=== PATIENT | female | born 1970 | race Caucasian/White ===

== ENCOUNTER 2019-12-25 14:28 | Outpatient (CLI) | payer BC, SELFPAY ==
--- NOTE | ~2019-12-25 | XR_ITS ---
EXAMINATION: XR shoulder LT min 2V DATE: 12/25/2019 14:51 INDICATION: Left shoulder impingement syndrome. TECHNIQUE: 4 views of left shoulder were obtained. COMPARISON: None. FINDINGS: Bone alignment is normal. No fracture. Joint spaces are well maintained. IMPRESSION: 1. Normal left shoulder. Reviewed, dictated and finalized at location A. IMPRESSION: 1. Normal left shoulder.
== END 2019-12-25 14:29 | disposition home or self-care (01) ==
DX: M75.42 Impingement syndrome of left shoulder (principal)
CPT/HCPCS: 73030

== ENCOUNTER 2020-03-15 16:14 | Emergency (ER) | payer BC, SELFPAY ==
[2020-03-15 16:37] VITALS: BP 124/71; PULSE 84; RESP 16; TEMP 36.6; O2SAT 100
[2020-03-15] MEDS: TETANUS,DIPHTHERIA,AC PERTUSSIS ADULT (0.5 ML) BOOSTRIX IM (19:00)
--- NOTE | 2020-03-15 19:51 | ED.GENADULT ---
HPI - General Adult General Chief complaint: Extremity Injury, Upper <Estela Madrid PA-C - Last Filed: 03/15/20 19:56> Stated complaint: cut pinky finger with kitchen knife <PILAR Ackerman Last Filed: 03/15/20 19:56> Time Seen by Provider: 03/15/20 17:19 <Estela Madrid PA-C - Last Filed: 03/15/20 19:56> Source: patient <PILAR Ackerman Last Filed: 03/15/20 19:56> Mode of arrival: ambulatory <PILAR Ackerman Last Filed: 03/15/20 19:56> Limitations: no limitations <PILAR Ackerman Last Filed: 03/15/20 19:56> History of Present Illness HPI narrative: Patient presents with chief complaint of laceration to the volar aspect of her right pinky that she sustained while using a knife cooking dinner. Patient states that the area was bleeding profusely so she applied pressure and was able to get the bleeding to stop. Patient states that she does not believe she is up-to-date on tetanus. Patient denies any loss of range of motion to digit or bony tenderness. Patient denies any other injuries. <Estela Madrid PA-C - Last Filed: 03/15/20 19:56> Related Data Home medications: Home Medications Medication Instructions Recorded Confirmed No Home Medications 06/02/19 06/02/19 <PILAR Ackerman Last Filed: 03/15/20 19:56> Allergies/adverse reactions: Allergies Allergy/AdvReac Type Severity Reaction Status Date / Time No Known Allergies Allergy Unknown Verified 06/02/19 10:00 <PILAR Ackerman Last Filed: 03/15/20 19:56> Review of Systems Review of Systems: Narrative: CONSTITUTIONAL: Denies fever, chills, or sweats. EYES: Denies visual changes, redness, or discharge. ENT: Denies rhinorrhea, congestion, sore throat, or otalgia. CARDIOVASCULAR: Denies chest pain, palpitations, or edema. RESPIRATORY: Denies cough or dyspnea. GASTROINTESTINAL: Denies abdominal pain, nausea, vomiting, or diarrhea. GENITOURINARY: Denies dysuria or hematuria. SKIN: Reports laceration denies rash or itching. MUSCULOSKELETAL: Denies back pain, joint pain, or myalgia. NEUROLOGIC: Denies headache, numbness, dizziness, or weakness. PSYCHIATRIC: Denies anxiety or depression. <Estela Madrid PA-C - Last Filed: 03/15/20 19:56> PMFSH Past Medical History Medical History: Medical History (Updated 03/15/20 @ 19:55 by Estela Madrid PA-C) Vaginal delivery <Estela Madrid PA-C - Last Filed: 03/15/20 19:56> Family History Family History: Family History Grandparent Hypertension Carcinoma of colon Family history of malignant neoplasm of breast Family history of coronary artery disease Diabetes mellitus <Estela Madrid PA-C - Last Filed: 03/15/20 19:56> Social History Social History: Social History Smoking status: Never smoker Second hand tobacco smoke exposure: No Alcohol intake: never Gender identity (if verbalized by the patient): Female <Estela Madrid PA-C - Last Filed: 03/15/20 19:56> Exam Narrative: Exam Narrative: GENERAL: Well-appearing, well-nourished, and in no acute distress. HEAD: Normocephalic, atraumatic. EYES: PERRLA and EOMI. NECK: Supple. No adenopathy or masses. No carotid bruits or JVD CHEST: Clear to auscultation. No respiratory distress. No wheezes rales or rhonchi HEART: Regular rate and rhythm. EXTREMITIES: Approximate 1 cm laceration to the volar aspect of patient's right pinky. No bleeding at this time. No bony tenderness or loss of range of motion. Normal range of motion. No edema. SKIN: Warm, dry, no rash. NEURO: No focal deficits. Alert and oriented x3. PSYCH: Normal mood and affect. <Estela Madrid PA-C - Last Filed: 03/15/20 19:56> Course Vital Signs Vital signs: Vital Signs Temperature 36.6 C 03/15/20 16:37 Pulse Rate 84 03/15/20 16:37 Respiratory
== END 2020-03-15 20:16 | disposition home or self-care (01) ==
PROVIDERS: Emergency Provider Emergency Medicine
DX: S61.216A Laceration without foreign body of right little finger without damage to nail, initial encounter (principal); Z23 Encounter for immunization; W26.0XXA Contact with knife, initial encounter; Y93.G1 Activity, food preparation and clean up
CPT/HCPCS: 12001; 90471; 90715; 99282

== ENCOUNTER → 2021-07-04 12:44 | Outpatient (CLI) | payer BC, SELFPAY ==
--- NOTE | ~2021-07-04 | US_ITS ---
EXAMINATION: US pelvic complete w TV EXAM DATE: 07/04/2021 13:16 INDICATION: N85.2 - Hypertrophy of uterus. TECHNIQUE: Pelvic transabdominal and transvaginal sonogram was performed. There are multiple graysca le and Doppler images available for interpretation. There is no prior study for comparison. FINDINGS: Uterus measures 10.7 x 5.1 x 5.9 cm, and is morphologically normal. Endometrial stripe me asures 16 mm, within upper normal limits for premenopausal age. There is no free pelvic fluid. Right adnexa: The ovary measures 1.9 x 1.7 x 1.7 cm and is morphologically normal. Ovarian vascular f low confirmed. Left adnexa: The ovary measures 2.8 x 2.3 x 2.8 cm and is morphologically normal. Ovarian vascular fl ow confirmed. IMPRESSION: 1. Unremarkable pelvic ultrasound exam. Reviewed, dictated and finalized at location B.
--- NOTE | ~2021-07-04 | MM_ITS ---
EXAMINATION: MM screening [facility] BI w willie HISTORY: Screening mammogram TECHNIQUE: Craniocaudal and mediolateral oblique 3-D tomosynthesis images were obtained and synthetic 2-D images were generated. CAD analysis was submitted and interpreted. COMPARISON: 08/29/2018, 08/16/2016 BREAST PARENCHYMAL COMPOSITION: The breasts are heterogeneously dense, which may obscure small masses . FINDINGS: RIGHT BREAST: There is no suspicious mass, calcification, or architectural distortion to suggest raghu gnancy. There has been no significant interval change. LEFT BREAST: There is a possible mass in the middle third of the lower-outer breast best appreciated 4.5 cm from the nipple on craniocaudal tomosynthesis image 16/56. IMPRESSION: 1. Possible left breast mass. 2. Additional mammographic views and possible breast ultrasound are recommended. BI-RADS Category 0: Incomplete: Needs additional imaging evaluation. Reviewed, dictated and finalized at location A. IMPRESSION: 1. Possible left breast mass. 2. Additional mammographic views and possible breast ultrasound are recommended . BI-RADS Category 0: Incomplete: Needs additional imaging evaluation.
== END ==
PROVIDERS: Visit Provider Obstetrics & Gynecology
DX: Z12.31 Encounter for screening mammogram for malignant neoplasm of breast (principal); R92.8 Other abnormal and inconclusive findings on diagnostic imaging of breast; N85.2 Hypertrophy of uterus
CPT/HCPCS: 76830; 76856; 77063; 77067

== ENCOUNTER → 2021-07-25 14:16 | Outpatient (CLI) | payer BC, SELFPAY ==
--- NOTE | ~2021-07-25 | MMUS_ITS ---
EXAMINATION: MM diagnostic gurdeep LT w willie, US breast LT limited HISTORY: Possible mass reported in the middle third of the lower outer left breast 4.5 cm from the ni pple on 07/04/2021 screening mammogram examination TECHNIQUE: Additional 3-D tomosynthesis images of the left breast were performed and synthetic 2-D im ages were generated. CAD analysis was submitted and interpreted. High resolution upper outer and lowe r-outer left breast ultrasound was performed. COMPARISON: 07/04/2021 bilateral screening mammogram FINDINGS: MAMMOGRAPHIC FINDINGS: An approximately 5 mm partially circumscribed opacity is noted in the posterior outer mid left breast . No suspicious mass or architectural distortion, malignant calcification, skin thickening or retractio n is evident otherwise. ULTRASOUND: No suspicious solid lesion or shadowing is evident. 12:00 subareolar: 6 mm simple cyst 2:00 subareolar: Parallel circumscribed 4 x 7.3 mm complex lesion without internal vascularity or pos terior shadowing, benign in appearance 3:00 subareolar: 6.3 mm simple cyst 5:00 subareolar: 3.4 mm cyst 4 mm subareolar cyst IMPRESSION: 1. No mammographic evidence of malignancy 2. Routine mammographic screening is recommended BI-RADS Category 2: Benign finding(s). Reviewed, dictated and finalized at location A. IMPRESSION: 1. No mammographic evidence of malignancy 2. Routine mammographic screening is recommended BI-RADS Category 2: Benign finding(s).
== END ==
PROVIDERS: Visit Provider Obstetrics & Gynecology
DX: N60.02 Solitary cyst of left breast (principal); N63.42 Unspecified lump in left breast, subareolar
CPT/HCPCS: 76642; 77061; 77065; G0279

== ENCOUNTER → 2022-12-11 13:47 | Outpatient (CLI) | payer BC, SELFPAY ==
--- NOTE | ~2022-12-11 | MM_ITS ---
EXAMINATION: MM screening [facility] BI w willie HISTORY: Screening mammogram TECHNIQUE: Craniocaudal and mediolateral oblique 3-D tomosynthesis images were obtained and synthetic 2-D images were generated. CAD analysis was submitted and interpreted. COMPARISON: July 25, 2021 diagnostic left mammogram and limited left breast ultrasound 07/04/2021, 08/25/2018 bilateral screening mammogram examination BREAST PARENCHYMAL COMPOSITION: The breasts are heterogeneously dense, which may obscure small masses . FINDINGS: Stable circumscribed 5 mm opacity in the posterior lower outer left breast since 07/04/2021. Benign correlated sonographic finding is noted on 07/25/2021. Possible 6 mm opacity in the posterior outer mid right breast. Diagnostic right mammogram is recommen ded, with ultrasound correlation. No suspicious mass, architectural distortion, malignant calcification, skin thickening or retraction or significant new or developing density of either breast is noted otherwise. IMPRESSION: 1. Possible 6 mm new mass in posterior outer mid right breast 2. Diagnostic right mammogram and right breast ultrasound examination are recommended. BI-RADS Category 0: Incomplete: Needs additional imaging evaluation. Reviewed, dictated and finalized at location A. IMPRESSION: 1. Possible 6 mm new mass in posterior outer mid right breast 2. Diagnostic right mammogram and right breast ultrasound examination are recom mended. BI-RADS Category 0: Incomplete: Needs additional imaging evaluation.
== END ==
PROVIDERS: PCP Obstetrics & Gynecology; Visit Provider Obstetrics & Gynecology
DX: Z12.31 Encounter for screening mammogram for malignant neoplasm of breast (principal); R92.8 Other abnormal and inconclusive findings on diagnostic imaging of breast
CPT/HCPCS: 77063; 77067

== ENCOUNTER → 2023-01-17 08:17 | Outpatient (CLI) | payer BC, SELFPAY ==
--- NOTE | ~2023-01-17 | MMUS_ITS ---
EXAMINATION: MM diagnostic gurdeep RT w willie, US breast RT limited HISTORY: Possible 6 mm mass in posterior outer mid right breast reported on 12/11/2022 screening mammog gonzalez examination TECHNIQUE: Additional 3-D tomosynthesis images of the right breast were performed and synthetic 2-D i mages were generated. CAD analysis was submitted and interpreted. High resolution upper outer and low er-outer quadrants right breast ultrasound was performed. COMPARISON: 12/11/2022 bilateral screening mammogram FINDINGS: MAMMOGRAPHIC FINDINGS: There is a low-density circumscribed approximately 5 mm opacity in the posterior mid to upper outer r ight breast. No suspicious mass or architectural distortion, malignant calcification, skin thickening or retractio n is detected. ULTRASOUND: 9:00 3.5 cm from nipple: Parallel circumscribed sonolucency measuring approximately 3 x 5 mm, consist ent with benign simple cyst 10:00 2 cm from nipple: 2.5 mm simple cyst 11:00 3.5 cm from nipple: 3 x 5 mm and 2 x 4.7 mm adjacent simple cysts Medial subareolar area: 4.3 x 6.7 x 5.6 mm simple cyst No suspicious mass or shadowing is detected. IMPRESSION: 1. Benign findings 2. Routine annual mammographic screening is recommended BI-RADS Category 2: Benign finding(s). Reviewed, dictated and finalized at location A. IMPRESSION: 1. Benign findings 2. Routine annual mammographic screening is recommended BI-RADS Category 2: Benign finding(s).
== END ==
PROVIDERS: PCP Obstetrics & Gynecology; Visit Provider Obstetrics & Gynecology
DX: R92.8 Other abnormal and inconclusive findings on diagnostic imaging of breast (principal); N60.01 Solitary cyst of right breast
CPT/HCPCS: 76642; 77061; 77065; G0279

== ENCOUNTER 2023-12-05 01:39 | Day surgery (SDC) | payer BC, SELFPAY ==
[2023-11-18 14:10] VITALS: BMI 23.3
[2023-12-05 07:07] VITALS: BP 115/78; PULSE 77; RESP 16; TEMP 36.6; O2SAT 100; BMI 22.9
[2023-12-05] MEDS: LACTATED RINGERS 1,000 ML 150 ML IV CONT (07:22)
--- NOTE | 2023-12-05 08:00 | WPDANESEPPF ---
Anes - Initial Pre Proc Eval Procedure: Operation Date: 12/05/23 08:30 Proposed Procedures p Screening Colonoscopy - Long Alanis DO Date/Time: 12/05/23 08:00 Surgeon: Long Alanis DO Pre Op Diagnosis: neoplasm screening Patient Data Age: 53 Gender: F Height: 1.65 m Weight: 62.5 kg Last Vital Signs Temp 97.8 F 12/05/23 07:07 Pulse 77 12/05/23 07:07 Resp 16 12/05/23 07:07 BP 115/78 12/05/23 07:07 Pulse Ox 100 12/05/23 07:07 O2 Del Method Room Air 12/05/23 07:07 Allergies Allergy/AdvReac Type Severity Reaction Status Date / Time No Known Allergies Allergy Unknown Verified 12/05/23 07:05 Home Medications Medication Instructions Recorded Confirmed Type multivitamin (Daily Multi-Vitamin 1 tablet PO DAILY 06/20/21 12/05/23 History tablet) Turmeric/Curcumin 1,500 mg PO DAILY 11/18/23 12/05/23 History docusate sodium 100 mg capsule 100 mg PO DAILY 11/18/23 12/05/23 History (Colace) ferrous sulfate 325 mg (65 mg 325 mg PO DAILY 11/18/23 12/05/23 History iron) tablet Patient hx anesthesia problems: none Family hx anesthesia problems: none Results Review: All pre-operative results and documents have been reviewed as part of the pre-operative evaluation. [facility] Past Medical History Medical History Spontaneous Vaginal delivery Surgical History Surgical History No significant past surgical history Family History Family History Grandparent Hypertension Carcinoma of colon Family history of malignant neoplasm of breast Family history of coronary artery disease Diabetes mellitus Father Afib Social History Social History Smoking status: Never smoker Second hand tobacco smoke exposure: No Alcohol intake: current Substance use: never Substance use type: does not use Lack of Transportation: No Lack of Food: Never True Current Housing: I Have Housing Concerned About Future Housing: No Difficulty Paying Gas/Electric Bills: No Difficulty Paying for Meds: No Currently Unemployed: No Education: Bachelor's Degree Difficulty w/ Childcare or Family Care: No Living arrangements: with family Gender identity (if verbalized by the patient): Female Spiritual care concerns: No Anes - Eval Final PreProcedure Day of Procedure 12/05/23 08:00 Patient weight: normal Heart: regular rate and rhythm Lungs: clear to auscultation Airway: Mallampati scale class II Neurological: alert and oriented Last oral intake: >/= 8 hours ASA classification: II Emergent: no Anesthetic plan: proceed Anesthesia type and monitoring: general GIVS and standard monitoring Results Review: All pre-operative results and documents have been reviewed as part of the pre-operative evaluation. Informed Consent: The patient's anesthetic plan and its attendant risks and benefits were discussed with the patient/family/POA. Questions were solicited and answers provided to the satisfaction of the patient/family/POA.
--- NOTE | 2023-12-05 08:12 | SUR.PREOP ---
Dr. Son and Dr. Alanis made aware that the patient had a banana yesterday morning at 0400.
--- NOTE | 2023-12-05 08:13 | PM.IMHP ---
H&P: HPI History of Present Illness Date/Time: 12/05/23 08:13 Chief Complaint: screening for colorectal cancer Narrative: this is 53-year-old woman who presents for colonoscopy. She denies any hematochezia or melena. She does have a grandfather with history of colon cancer but no first-degree relatives. She has never had a colonoscopy before. Review of Systems Review of Systems: All systems reviewed & are unremarkable except as noted in HPI and below Constitutional: Constitutional: Denies chills, Denies fever(s), Denies headache(s) and Denies weight loss Eyes: Eyes: Denies change in vision ENT: Denies dizziness, Denies headache(s), Denies neck mass and Denies throat swelling Cardiovascular: Cardiovascular: Denies chest pain, Denies lightheadedness and Denies dyspnea Respiratory: Respiratory: Denies cough, Denies dyspnea and Denies wheezing Gastrointestinal: Gastrointestinal: Denies abdominal pain, Denies change in bowel habits, Denies nausea and Denies vomiting Genitourinary: Genitourinary: Denies hematuria and Denies dysuria Musculoskeletal: Musculoskeletal: Reports as per HPI Integumentary/Breasts: Skin/Breast: Reports as per HPI Neurologic: Denies dizziness and Denies headache(s) Allergic/Immunologic: Allergic/Immunologic: Denies throat swelling and Denies wheezing PMFSH Past Medical History Medical History Spontaneous Vaginal delivery Surgical History Surgical History No significant past surgical history Family History Family History Grandparent Hypertension Carcinoma of colon Family history of malignant neoplasm of breast Family history of coronary artery disease Diabetes mellitus Father Afib Social History Social History Smoking status: Never smoker Second hand tobacco smoke exposure: No Alcohol intake: current Substance use: never Substance use type: does not use Lack of Transportation: No Lack of Food: Never True Current Housing: I Have Housing Concerned About Future Housing: No Difficulty Paying Gas/Electric Bills: No Difficulty Paying for Meds: No Currently Unemployed: No Education: Bachelor's Degree Difficulty w/ Childcare or Family Care: No Living arrangements: with family Gender identity (if verbalized by the patient): Female Spiritual care concerns: No Meds Home Medications and Allergies Home Medications Medication Instructions Recorded Confirmed Type multivitamin (Daily Multi-Vitamin 1 tablet PO DAILY 06/20/21 12/05/23 History tablet) Turmeric/Curcumin 1,500 mg PO DAILY 11/18/23 12/05/23 History docusate sodium 100 mg capsule 100 mg PO DAILY 11/18/23 12/05/23 History (Colace) ferrous sulfate 325 mg (65 mg 325 mg PO DAILY 11/18/23 12/05/23 History iron) tablet Allergies Allergy/AdvReac Type Severity Reaction Status Date / Time No Known Allergies Allergy Unknown Verified 12/05/23 07:05 Vital Signs Vital Signs - 24 hr 12/05/23 07:07 Temperature 36.6 C Pulse Rate 77 Respiratory Rate 16 Blood Pressure 115/78 Pulse Oximetry 100 Oxygen Delivery Room Air Exam Const: General: no acute distress and alert Orientation/consciousness: patient oriented x3 HENMT: Head: normocephalic and atraumatic Ears: hearing grossly normal bilaterally Face/Nose/Sinus: Normal nares present Mouth: Yes Normal oral and palatal mucosa present Eyes: Periorbital: periorbital findings normal Sclera: sclerae normal EOM: EOMs intact bilaterally Neck: Neck: normal visual inspection, no lymphadenopathy and trachea midline Chest: Chest palpation & inspection: normal inspection of the chest Resp: Effort & Inspection: normal respiratory effort Auscultation: clear to auscultation bilaterally Card
[2023-12-05 08:37] LABS: BEDSIDEPREGUCG Negative
[2023-12-05 08:38] VITALS: BP 97/57; PULSE 72; O2SAT 99
[2023-12-05 08:48] VITALS: BP 98/60; PULSE 70; O2SAT 99
[2023-12-05 08:59] VITALS: BP 108/72; PULSE 70; O2SAT 100
== END 2023-12-05 09:10 | disposition home or self-care (01) ==
PROVIDERS: PCP Nurse Practitioner; Referring Provider Obstetrics & Gynecology; Visit Provider Surgery
PROC: 0DJD8ZZ Inspection of Lower Intestinal Tract, Via Natural or Artificial Opening Endoscopic (ICD-10-PCS; CPT 45378; principal; 2023-12-05 08:30)
DX: Z12.11 Encounter for screening for malignant neoplasm of colon (principal); K63.5 Polyp of colon
CPT/HCPCS: 45380; 88305; J2704; J7120